=== PATIENT | male | born 1995 | race Caucasian/White ===

== ENCOUNTER 2016-08-13 18:45 | Emergency (ER) | payer MEDICAID ==
[~2016-08-13] VITALS: Ht 177.8 cm; Wt 96.6 kg
[2016-08-13 19:00] VITALS: BP 140/86
--- NOTE | 2016-08-13 19:50 | NUR ---
PT. AMBULATES TO BED 7
--- NOTE | 2016-08-13 20:00 | NUR ---
21Y/M PATIENT PRESENTS TO ED WITH LT. ARM LACERATION X 5 HRS. PT STATES FELL AND LANDED ON LT. SIDE, LT. ELBOW LACERATION. DENIES N/V/D; SKIN IS PINK/WARM/DRY, NOTED LT. ELBOW LACERATION; AAOX4 WITH EVEN AND STEADY GAIT; LUNGS CLEAR BL; HR EVEN AND REGULAR; PT DENIES ANY FEVER, CP, SOB, OR COUGH AT THIS TIME; PATIENT STATES PAIN OF 2/10 AT THIS TIME; VSS; PATIENT POSITIONED FOR COMFORT; HOB ELEVATED; BEDRAILS UP X2; BED DOWN. ER MD MADE AWARE OF PT STATUS.
--- NOTE | 2016-08-13 20:15 | NUR ---
Patient being evaluated by GLORIA BLACK at bedside.
--- NOTE | 2016-08-13 20:20 | NUR ---
GLORIA BLACK PERFORM SUTIRE AT BEDSIDE
[2016-08-13] MEDS: LIDOCAINE/EPI 1% 1:100000 20 ML VIAL INJ ONE (20:30)
[2016-08-13] MEDS ORDERED: LIDOCAINE/EPI 1% 1:100000 20 ML VIAL INJ ONE (20:30)
[2016-08-13] MEDS ORDERED: NEOMYCIN/POLYMYXIN/BACITRACIN 0.9 GM/1 PKT TP ONE (20:33)
--- NOTE | 2016-08-13 21:10 | NUR ---
Patient discharged with v/s stable. Written and verbal after care instructions given and explained. Patient alert, oriented and verbalized understanding of instructions. Ambulatory with steady gait. All questions addressed prior to discharge. ID band removed. Patient advised to follow up with PMD. Rx of MOTRIN 600 MG given. Patient educated on indication of medication including possible reaction and side effects. Opportunity to ask questions provided and answered.
[2016-08-13 21:11] VITALS: BP 135/81
== END 2016-08-13 21:10 | disposition home or self-care (01) ==
LOC: MED 18:45
DX: S51.012A Laceration without foreign body of left elbow, initial encounter (principal); W01.0XXA Fall on same level from slipping, tripping and stumbling without subsequent striking against object, initial encounter; Y93.01 Activity, walking, marching and hiking; Y92.89 Other specified places as the place of occurrence of the external cause; Y99.8 Other external cause status
CPT/HCPCS: 12002; 73080; 90471; 90715; 99284; J2001